=== PATIENT | male | born 1970 | race Caucasian/White ===

== ENCOUNTER 2020-06-22 13:10 | Outpatient (REF) | payer MEDICAID, SELFPAY ==
[2020-06-22 21:14] LABS: Anion Gap 8.4 mmol/L (3-11); BUN 21 mg/dL (7-18); CO2 27.6 mmol/L (21.0-32.0); CREATININE 0.94 mg/dL (0.70-1.30); Chloride 104 mmol/L (98-107); Cholesterol 223 mg/dL (<200); Glucose 102 mg/dL (74-106); HDL Cholesterol 27 mg/dL (40-60); Potassium 4.1 mmol/L (3.5-5.1); Sodium 140 mmol/L (136-145); Triglyceride 561 mg/dL (<150)
[2020-06-22 21:18] LABS: Hemoglobin A1C 5.5 % (3.8-5.6)
[2020-06-22 21:36] LABS: LDL CHOLESTEROL 108 mg/dL (<100)
[2020-06-26 10:05] LABS: HIV-1/2 Ag & Ab Screen Negative (Negative)
[2020-06-26 10:21] LABS: Hepatitis C Ab w Rflx HCV PCR Negative (Negative)
== END 2020-06-22 13:30 ==
LOC: NCHCN 13:10
PROVIDERS: PCP Family Medicine; Visit Provider Family Medicine
DX: Z00.00 Encounter for general adult medical examination without abnormal findings (principal); R03.0 Elevated blood-pressure reading, without diagnosis of hypertension
CPT/HCPCS: 80048; 80061; 83721; 86803; 87389; 83036

== ENCOUNTER 2021-09-19 07:33 | Outpatient (REF) | payer MEDICAID, SELFPAY ==
[2021-09-19 12:59] LABS: Calculated LDL 154 mg/dL (<100); Cholesterol 231 mg/dL (<200); HDL Cholesterol 37 mg/dL (40-60); Triglyceride 200 mg/dL (<150)
== END 2021-09-19 07:34 | disposition home or self-care (01) ==
LOC: NCHCN 07:33
PROVIDERS: PCP Family Medicine; Visit Provider Family Medicine
DX: E78.5 Hyperlipidemia, unspecified (principal); F41.1 Generalized anxiety disorder
CPT/HCPCS: 80061; 84443

== ENCOUNTER 2021-11-02 01:32 | Outpatient (CLI) | payer MEDICAID, SELFPAY ==
--- NOTE | 2021-11-02 09:15 | DI.US_ITS ---
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 TECHNIQUE: Ultrasound thyroid performed using standard protocol. COMPARISON: No exams were available for comparison FINDINGS: ISTHMUS: 4.6 mm RIGHT LOBE: Size: 4.5 x 1.5 x 1.9 cm Echogenicity: Normal. Vascularity: Normal. Nodules: None. LEFT LOBE: Size: 5 x 1.2 x 1.7 cm Echogenicity: Normal. Vascularity: Normal. Nodules: None. OTHER FINDINGS: None. IMPRESSION: Normal sonographic appearance of the thyroid gland. DATA REPOSITORY:
== END 2021-11-02 01:52 ==
PROVIDERS: PCP Family Medicine; Visit Provider Family Medicine
DX: E04.1 Nontoxic single thyroid nodule (principal)
CPT/HCPCS: 76536

== ENCOUNTER → 2023-07-11 10:47 | Outpatient (CLI) | payer MEDICAID, SELFPAY ==
--- NOTE | 2023-07-11 | DI.CT_ITS ---
Exam(s) CT ABDOMEN PELVIS W EXAM: CT ABDOMEN PELVIS W CLINICAL HISTORY: LLQ ABD PAIN, R10.32; DIVERTICULOSIS, K57.90; FEVERS AND CHILLS. TECHNIQUE: Imaging Protocol: Axial computed tomography images with coronal and sagittal reformatted images were created and reviewed CONTRAST MATERIAL: Intravenous: Omnipaque 350 Contrast volume:100 ml Oral: yes / COMPARISON: CT ABD PELVIS WITH CONTRAST from 12/26/2009 FINDINGS: ABDOMEN: Lung Bases: Normal where visualized. Liver: Mild fatty infiltration. Small cyst inferior left lobe. No suspicious mass. Gallbladder and biliary tract: No radiodense calculus or dilation. Pancreas: Normal density, no abnormal calcifications or inflammatory process. Spleen: Normal. Kidneys: Normal size, contour and axis. No radiodense stones or obstructive uropathy. Small right re nal cyst. No suspicious masses seen. Adrenal glands: No masses seen. Abdominal Aorta: Abdominal portion non-dilated. Soft tissues: Bilateral fatty containing inguinal hernias. PELVIS: Bladder: No gross wall thickening. No calculi.No focal mass. Bowel: No obstruction. Diverticulosis of the descending and sigmoid colon. severe diverticulosis o f the sigmoid. Inflammation at the lower descending colon inflammation near the junction with the s igmoid consistent with diverticulitis. No abscess, free air or free fluid. Normal quantity of stool . Appendix normal. Bones: Unremarkable for age. Reproductive organs: Within normal limits. Lymph nodes: Unremarkable. Impression: Diverticulitis at the junction of the lower descending and sigmoid colon. RADIATION DOSE DELIVERED: 984.31mGy.cm Total DLP DATA REPOSITORY: All CT scans at this facility are submitted to the National Radiology Data Registry (NRDR) Dose Index Registry (DIR) with the [employer] [place] [employer] ([employer]). RADIATION OPTIMIZATION: All CT scans at this facility use at least one of these dose optimization te chniques: automated exposure control; mA and/or kV adjustment per patient size (includes targeted exa ms where dose is matched to clinical indication); or iterative reconstruction.
[2023-07-11] MEDS: Barium Sulfate 2% W/V-Creamy Vanilla Smoothie 450 ML BTL 950 ML PO (12:57)
[2023-07-11 13:02] LABS: Abs Immature Grans 0.05 10^3/uL (0.0-0.06); Absolute Basophil Count 0.04 10^3/uL (0.0-0.2); Absolute Eosinophil Count 0.12 10^3/uL (0.0-0.7); Absolute Lymphocyte Count 1.93 10^3/uL (1.2-3.4); Absolute Monocyte Count 0.72 10^3/uL (0.1-0.8); Absolute Neutrophil Count 7.47 10^3/uL (1.2-6.7); Basophils % 0.4; Eosinophils % 1.2; HCT 41.4 % (40.0-50.0); HGB 13.9 g/dL (13.5-17.5); Immature Grans % 0.5; Lymphocytes % 18.7; MCH 31.4 pg (27.0-33.0); MCHC 33.6 % (32.0-36.0); MCV 94 fL (80-95); MPV 8.9 fL (8.0-11.0); Neutrophils % 72.2; Platelet Count 194 10^3/uL (130-400); RBC 4.43 10^6/uL (4.36-5.78); RDW 11.4 % (11.8-14.1); WBC 10.33 10^3/uL (4.4-10.8)
[2023-07-11 13:11] LABS: Anion Gap 6.8 mmol/L (3-11); BUN 27 mg/dL (7-18); CO2 30.2 mmol/L (21.0-32.0); Calcium 9.1 mg/dL (8.5-10.1); Chloride 101 mmol/L (98-107); Estimated GFR 88.88 (mL/min/1.73m2); Glucose 103 mg/dL (74-106); Sodium 138 mmol/L (136-145)
[2023-07-11] MEDS: Normal Saline - Diluent 50 ML VIAL IJ (14:28)
[2023-07-11] MEDS: Normal Saline Flush 10 ML SYR IVP (14:29)
[2023-07-11] MEDS: Omnipaque 350 MG/ML 500 ML BTL-Imaging package IJ (14:30)
== END ==
PROVIDERS: PCP Family Medicine; Visit Provider Physician Assistant Medical
DX: K57.32 Diverticulitis of large intestine without perforation or abscess without bleeding (principal); R10.32 Left lower quadrant pain
CPT/HCPCS: 36415; 80048; 74177; 85025

== ENCOUNTER 2023-08-22 01:21 | Outpatient (CLI) | payer MEDICAID, SELFPAY ==
[2023-08-22] MEDS: Levalbuterol HFA 15 GM INH 4 PUFF IH (09:28)
[2023-08-22] MEDS: Inhaler, Assist Device 1 EACH MC (09:29)
--- NOTE | 2023-08-22 09:36 | DI.RAD_ITS ---
Exam(s) XR CHEST 2V PA LATERAL EXAM: XR CHEST 2V PA LATERAL CLINICAL HISTORY: ASBESTOS EXPOSURE Z77.090 TECHNIQUE: 2D digital imaging was performed. COMPARISON: CT CT ABDOMEN PELVIS W from 07/11/2023 FINDINGS: HEART: Normal size. Aorta: Not dilated. PULMONARY VASCULATURE: Normal. LUNGS: Clear. PLEURAL SPACE: No pleural effusion or pneumothorax. No pleural plaques visible. BONE:Unremarkable for age. IMPRESSION: No acute abnormality. DATA REPOSITORY: RADIATION DOSE DELIVERED:
--- NOTE | 2023-09-01 11:49 | W.PFT ---
Date of service: 08/22/23 Time of Service: 07:57 Pulmonary Function Test Result Indications: Asbestos exposure Interpretation Spirometry: There is no airflow limitation. No bronchodilator response. Lung Volumes: Normal lung volumes Diffusion Capacity: Normal diffusion Airway Pressure: Normal airways resistance Impression Normal pulmonary function testing Clinical Correlation therefore is recommended.
== END 2023-08-22 01:22 | disposition home or self-care (01) ==
LOC: RT 01:21
PROVIDERS: PCP Family Medicine; Visit Provider Family Medicine
DX: Z77.090 Contact with and (suspected) exposure to asbestos (principal)
CPT/HCPCS: 94060; 94726; 94729; 71046

== ENCOUNTER 2024-03-05 18:06 | Outpatient (REF) | payer BC, SELFPAY ==
[2024-03-05 18:41] LABS: Cholesterol 239 mg/dL (<200); HDL Cholesterol 36 mg/dL (40-60); Triglyceride 478 mg/dL (<150)
[2024-03-05 18:54] LABS: Hemoglobin A1C 5.6 % (<5.7)
[2024-03-05 18:55] LABS: LDL CHOLESTEROL 102 mg/dL (<100)
== END 2024-03-05 18:07 | disposition home or self-care (01) ==
LOC: NCHCN 18:06
PROVIDERS: PCP Family Medicine; Referring Provider Family Medicine; Visit Provider Family Medicine
DX: Z13.6 Encounter for screening for cardiovascular disorders (principal); Z13.1 Encounter for screening for diabetes mellitus
CPT/HCPCS: 80061; 83721; 83036

== ENCOUNTER 2024-05-26 11:37 | Outpatient (REF) | payer BC, SELFPAY ==
[2024-05-26 15:46] LABS: Calculated LDL 124 mg/dL (<100); Cholesterol 226 mg/dL (<200); HDL Cholesterol 37 mg/dL (40-60); Triglyceride 329 mg/dL (<150)
== END 2024-05-26 11:38 | disposition home or self-care (01) ==
LOC: NCHCN 11:37
PROVIDERS: PCP Family Medicine; Visit Provider Student in an Organized Health Care Education/Training Program
DX: E78.2 Mixed hyperlipidemia (principal)
CPT/HCPCS: 80061